=== PATIENT | female | born 1945 | race Caucasian/White ===

== ENCOUNTER 2023-10-04 15:44 | Outpatient (CLI) | payer MEDICARE, BC, SELFPAY | END 2023-10-04 15:45 | disposition home or self-care (01) | PROVIDERS: PCP Nurse Practitioner Family; Visit Provider Nurse Practitioner Family | DX: I49.9 Cardiac arrhythmia, unspecified (principal) | CPT/HCPCS: 80053; 84443 ==

== ENCOUNTER 2024-06-08 10:42 | Outpatient (CLI) | payer MEDICARE, BC, SELFPAY ==
--- NOTE | 2024-06-08 11:00 | CRLHL7_ITS ---
For Patients: As a result of the Century Cures Act, medical imaging exams and procedure reports are released immediately into your electronic medical record. You may view this report before your referring provider. If you have questions, please contact your health care provider. INDICATION: Pain. Shoulder replacement. TECHNIQUE: Noncontrast CT of the right shoulder with metal artifact reduction techniques. COMPARISON: Radiographs from 05/30/2024. FINDINGS: Right total shoulder arthroplasty. Humeral component appears intact. No definite loosening associated with the humeral component or periprosthetic fracture. 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 No acute periprosthetic fracture. No dislocation of the prosthesis. Large ossified body within the subscapular recess region of the joint measuring approximately 2.5 cm. AC joint degenerative changes. Mild atrophy of the subscapularis muscle. Supraspinatus and infraspinatus muscle bulk are maintained. 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 IMPRESSION: 1. Right total shoulder arthroplasty. 2. Humeral component intact without loosening of the component or periprosthetic fracture. 3. 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 4. Mild atrophy of the subscapularis muscle. Please note that all CT scans at this facility use dose modulation, iterative reconstruction, and/or weight-based dosing when appropriate to reduce radiation dose to as low as reasonably achievable. Dictated by German Rivero MD @ 06/11/2024 8:21:34 AM (Electronically Signed)
== END 2024-06-08 10:43 | disposition home or self-care (01) ==
PROVIDERS: PCP Nurse Practitioner Family; Visit Provider Physician Assistant
DX: M25.511 Pain in right shoulder (principal); G89.29 Other chronic pain; Z96.611 Presence of right artificial shoulder joint
CPT/HCPCS: 73200

== ENCOUNTER 2025-01-25 09:03 | Outpatient (CLI) | payer MEDICARE, BC, SELFPAY | END 2025-01-25 09:04 | disposition home or self-care (01) | PROVIDERS: PCP Nurse Practitioner Family; Visit Provider Nurse Practitioner Family | DX: E78.5 Hyperlipidemia, unspecified (principal); I10 Essential (primary) hypertension | CPT/HCPCS: 80053; 80061; 85025 ==

== ENCOUNTER 2025-05-06 08:40 | Outpatient (CLI) | payer MEDICARE, BC, SELFPAY | END 2025-05-06 08:41 | disposition home or self-care (01) | LOC: NFLDREF 05-09 15:05 | PROVIDERS: PCP Nurse Practitioner Family; Referring Provider Nurse Practitioner Family; Visit Provider Nurse Practitioner Family | DX: E78.5 Hyperlipidemia, unspecified (principal); R79.89 Other specified abnormal findings of blood chemistry; R73.01 Impaired fasting glucose; Z51.81 Encounter for therapeutic drug level monitoring | CPT/HCPCS: 80061; 80076 ==

== ENCOUNTER 2025-05-20 13:51 | Outpatient (CLI) | payer MEDICARE, BC, SELFPAY | END 2025-05-20 13:52 | disposition home or self-care (01) | LOC: KYNREF 13:52 | PROVIDERS: PCP Nurse Practitioner Family; Visit Provider Nurse Practitioner Family | DX: R10.9 Unspecified abdominal pain (principal); R82.90 Unspecified abnormal findings in urine | CPT/HCPCS: 80048; 81001; 87086 ==